=== PATIENT | male | born 1950 | race Two or more races ===

== ENCOUNTER → 2018-04-16 | Outpatient (CLI) | payer MEDICARE, BC ==
--- NOTE | 2018-04-16 15:57 | US ---
EXAMINATION TYPE: US carotid duplex BILAT DATE OF EXAM: 04/16/2018 COMPARISON: NONE CLINICAL HISTORY: R09.89 Carotid Bruit. Presumed abnormal physical exam by EXAM MEASUREMENTS: RIGHT: Peak Systolic Velocity (PSV) cm/sec ----- Right CCA: 106.9 ----- Right ICA: 73.3 ----- Right ECA: 138.3 ICA/CCA ratio: 0.7 RIGHT: End Diastole cm/sec ----- Right CCA: 15.0 ----- Right ICA: 25.4 ----- Right ECA: 0 LEFT: Peak Systolic Velocity (PSV) cm/sec ----- Left CCA: 102.9 ----- Left ICA: 89.8 ----- Left ECA: 122.1 ICA/CCA ratio: 0.9 LEFT: End Diastole cm/sec ----- Left CCA: 19.3 ----- Left ICA: 31.7 ----- Left ECA: 0 VERTEBRALS (direction of flow): Right Vertebral: Antegrade Left Vertebral: Antegrade Rhythm: Normal There is moderate eccentric plaque at right carotid bulb extending into right external carotid artery . Velocity measurements and ratios in right internal carotid artery are within normal limits. Slightl y less prominent moderate eccentric plaque is seen at left carotid bulb. Velocity measurements and ra tios in left internal carotid artery are within normal limits. IMPRESSION: Moderate atherosclerotic change bilaterally without hemodynamically significant stenosis seen in either internal carotid artery.
== END | disposition home or self-care (01) ==
LOC: RADUSWWP 15:12
PROVIDERS: ATTEND Otolaryngology
DX: I65.23 Occlusion and stenosis of bilateral carotid arteries (principal)
CPT/HCPCS: 93880

== ENCOUNTER → 2018-05-09 | Outpatient (CLI) | payer MEDICARE, BC ==
[2018-05-09 13:13] LABS: Blood Urea Nitrogen 12 mg/dL (9-20)
--- NOTE | 2018-05-09 14:27 | MR ---
EXAMINATION TYPE: MR brain and iac wo/w con DATE OF EXAM: 05/09/2018 COMPARISON: NONE HISTORY: Pulsatile tinnitus, hearing loss, acoustic nerve disorder, carotid bruit H93.3x9 / H93.19 / H91.90 / R09.89 all per order. TECHNIQUE: Multiplanar, multisequence images of the brain and brainstem including evaluation through internal au ditory canals are all performed without and with IV contrast, utilizing 7.5 mL intravenous Gadavist . FINDINGS: Diffusion weighted images demonstrate no evidence of a recent infarct or other diffusion ab normality. There is no worrisome extra-axial fluid collection. The ventricular system and cisternal spaces are normal in size and appearance. The brain volume is age appropriate. There are some scatt ered foci of T2 hyperintensity seen throughout the white matter bilaterally. Approximately 10-20 scat tered lesions are seen. Lesions are likely on basis of product of chronic small vessel ischemic landon e. There is focal area of old infarct medial inferior left occipital lobe near axial image 14 with vo lume loss present. Midline structures demonstrate normal morphology. The craniocervical junction appears within normal limits. Post contrast images demonstrate no abnormal enhancement. The dural venous sinuses appear pa tent. The visualized sinuses are clear and the globes are intact. There is no suspicious opacification of mastoid air cells bilaterally. Vestibulocochlear complexes ar e symmetric and felt within normal limits. There is no suspicious enhancing cerebellopontine angle ma ss identified bilaterally. IMPRESSION: 1. No suspicious enhancing cerebellopontine angle mass. 2. Mild to borderline moderate nonspecific white matter changes most likely on basis of product of ch ronic small vessel ischemic change. 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
--- NOTE | 2018-05-09 14:53 | MR ---
EXAMINATION TYPE: MR angio head wo/neck wo/w con DATE OF EXAM: 05/09/2018 COMPARISON: Carotid ultrasound April 16, 2018 HISTORY: Pulsatile tinnitis, hearing loss, acoustic nerve disorder, carotid bruit. H93.3x9 / H93.19 / H91.90 / R09.89 all per order. TECHNIQUE: Time of flight images focusing on the [place] of [place] were performed without contrast.. 2-D and 3-D postprocessing imaging is performed on MRI scanner. Imaging of the neck focusing on carot id vessels was performed without and with IV contrast. Patient is injected with 7.5 cc of gadolinium this for the study. FINDINGS: There is normal three-vessel origin and aortic arch. There is eccentric plaque causing sten osis approaching near 50% at proximal aspect left subclavian artery seen best series 701 image 210. N o significant stenosis is otherwise identified in the bilateral subclavian arteries. The right common carotid artery shows normal origin from right brachiocephalic artery near image 84. There is no sign ificant plaque or stenosis along course of the right common carotid artery. There is no significant p laque or stenosis at right carotid bulb. There is patent external carotid artery without significant stenosis. There is no significant stenosis and the visualized portion of right internal carotid arter y up to the supraclinoid segment. The left common carotid artery shows no significant stenosis. Left carotid bulb shows mild eccentric plaque without significant stenosis. There is patent external carotid artery without significant sten osis. There is patent internal carotid artery without significant stenosis There are some tortuous course 2 bilateral vertebral arteries with some portions outside field of vie w making evaluation suboptimal. Vertebral arteries are likely patent to basilar junction with some mo derate eccentric narrowing due to anterior plaque distal right vertebral artery. There is patent left posterior communicating artery. There is hypoplastic right posterior communicati ng artery. No significant stenosis or aneurysmal change is seen in the posterior circulation. Images of the anterior circulation show significant stenosis in the supraclinoid segment best seen im age 86 series 301 narrowed to roughly 9 mm with reconstitution superior to this to 2.8 mm image 100 r ight before bifurcation into A1 and M1 segments. There is patent anterior communicating arteries seen image 113. IMPRESSION: 1. Significant focal stenosis measured 70% in the distal right internal carotid artery. 2. No significant focal stenosis in common or internal carotid arteries otherwise including at level of carotid bulbs. 3. No aneurysmal change at level of the [place] of [place].
== END | disposition home or self-care (01) ==
LOC: RADMRIMAIN 12:00
PROVIDERS: ATTEND Otolaryngology
DX: I65.21 Occlusion and stenosis of right carotid artery (principal); R90.89 Other abnormal findings on diagnostic imaging of central nervous system; I25.2 Old myocardial infarction; H93.11 Tinnitus, right ear; H93.3X9 Disorders of unspecified acoustic nerve; H91.90 Unspecified hearing loss, unspecified ear
CPT/HCPCS: 82565; 84520; 70544; 70549; 70553; 36415; A9581